=== PATIENT | male | born 1995 ===

== ENCOUNTER 2024-01-24 16:15 | Emergency (ER) | payer MEDICAID ==
[~2024-01-24] VITALS: Ht 193 cm; Wt 135.6 kg
[2024-01-24 18:00] VITALS: BP 151/69; PULSE 98; TEMP 97.9; O2SAT 100
[2024-01-24] MEDS ORDERED: HYDR50TA65 PO (19:40)
[2024-01-24 19:51] VITALS: RESP 20
[2024-01-24 20:21] LABS: URINE AMPHETAMINE SCREEN NEGATIVE (Neg); URINE BARBITUATE SCREEN NEGATIVE (Neg); URINE BENZODIAZEPINES SCREEN NEGATIVE (Neg); URINE CANNABINOID SCREEN POSITIVE (Neg); URINE COCAINE SCREEN NEGATIVE (Neg); URINE METHADONE SCREEN NEGATIVE (Neg); URINE OPIATE SCREEN NEGATIVE (Neg); URINE PHENCYCLIDINE SCREEN NEGATIVE (Neg)
== END 2024-01-24 19:53 | disposition home or self-care (01) ==
LOC: ER 16:17
DX: Z00.00 Encounter for general adult medical examination without abnormal findings (principal); Z76.0 Encounter for issue of repeat prescription
CPT/HCPCS: 80305; 99283

== ENCOUNTER 2024-02-07 16:59 | Emergency (ER) | payer MEDICAID ==
[~2024-02-07] VITALS: Ht 188 cm; Wt 132.0 kg
[~2024-02-07 16:59] MED LIST: HYDR50TA65 PO
[2024-02-07 17:04] VITALS: BP 130/78; PULSE 130; RESP 22; TEMP 100.4; O2SAT 97
[2024-02-07] MEDS ORDERED: AMOX-117 PO (17:04)
[2024-02-07] MEDS: amox tr/potassium clavulanate 875/125mg TAB PO ONE (17:28)
== END 2024-02-07 17:52 ==
LOC: ER 17:00
DX: S41.131A Puncture wound without foreign body of right upper arm, initial encounter (principal); S00.81XA Abrasion of other part of head, initial encounter; W54.0XXA Bitten by dog, initial encounter; Y93.89 Activity, other specified; Y92.89 Other specified places as the place of occurrence of the external cause; Y99.8 Other external cause status
CPT/HCPCS: 99283; A6258; A6449